=== PATIENT | female | born 1975 | race Asian ===

== ENCOUNTER 2018-11-11 22:34 | Emergency (ER) | payer OTHER, SELFPAY ==
[2018-11-11 22:43] VITALS: BP 148/93; PULSE 87; RESP 18; TEMP 36.4; O2SAT 100; BMI 22.3
--- NOTE | 2018-11-11 22:55 | PC.NURSE ---
Pt states stung by a bee on bottom of left 4th toe at 1500, she did not see bee sting her [place]. Took 25mg benadryl at 1500 and another at 2200. Pt also took 600mg ibuprofen at 2000. Pt is camping at [facility].
--- NOTE | 2018-11-11 23:25 | ED.LOWEXIN ---
HPI - Extremity Injury (Lower) General Chief Complaint: Extremity Injury, Lower Stated Complaint: LEFT FOOT BEE STING ON TOE PAIN Time Seen by Provider: 11/11/18 23:05 Source: patient Mode of arrival: ambulatory Limitations: no limitations History of Present Illness HPI Narrative: The patient stepped on a bee while walking barefoot and a local beats several hours prior to arrival. She has developed pain and swelling in the plantar left foot. She is taking analgesics, she has applied ice packs to foot. When up and walking pain and swelling in the left foot increased. She has no airway tightness or dyspnea. She has no rash or erythema distal from the injury area. She has no history of bee sting allergies. Her significant other elevated area, he is uncertain but may have pulled a stinger from the site. Related Data Allergies Allergy/AdvReac Type Severity Reaction Status Date / Time Iodinated Contrast- Oral and Allergy Verified 11/11/18 22:43 IV Dye Review of Systems Constitutional Denies body ache(s) and Denies weakness ENT Comments: No airway tightness Cardiovascular Denies rapid heart rate, Denies leg edema, Denies lightheadedness and Denies dyspnea Respiratory Denies dyspnea Musculoskeletal Reports as per HPI Integumentary/Breasts Comments: Erythema swelling limited to the left foot at the sting site. Neurologic Denies weakness [facility] Medical History (Updated 11/12/18 @ 01:55 by Dakota Johnson MD) No significant past medical history (Acute) Surgical History (Updated 11/12/18 @ 01:55 by Dakota Johnson MD) No pertinent past surgical history (Acute) Social History Smoking Status: Never smoker Social History Smoking Status: Never smoker Exam Initial Vital Signs Initial Vital Signs: Vital Signs Temperature 97.6 F 11/11/18 22:43 Pulse Rate 87 11/11/18 22:43 Respiratory Rate 18 11/11/18 22:43 Blood Pressure 148/93 H 11/11/18 22:43 Pulse Oximetry 100 11/11/18 22:43 Const General: cooperative, healthy appearing, well developed and well groomed [facility] Head: normocephalic and atraumatic Resp Auscultation: clear to auscultation bilaterally Skin Other: Focal erythema on the plantar left foot in an area between the 1st and 2nd MTP areas. No stingers present. Erythema and warmth of a 2.5 cm area is noted. there are no red streaks from the site. Extrem Other: Normal left foot capillary refill. Course Course Narrative: The patient has been taking ibuprofen and applying ice packs. There is no evidence of bee sting allergy. Patient was reassured that symptoms resolve despite her current level of discomfort. Vital Signs - 8 hr 11/11/18 22:43 Temperature 97.6 F Pulse Rate 87 Respiratory Rate 18 Blood Pressure 148/93 H Pulse Oximetry 100 Discharge Plan Departure Patient Disposition: Home Clinical Impression: Bee sting Qualifiers: Encounter type: initial encounter Injury intent: accidental or unintentional Qualified Code(s): T63.441A - Toxic effect of venom of bees, accidental (unintentional), initial encounter Discharge Date/Time: 11/11/18 23:30 Interventions: ED Discharge Assessment Last Done: 11/11/18 23:30 Instructions: How to Care for an Insect Bite or Sting Activity Restrictions/Additional Instructions: Ibuprofen 600 mg every 6 hours as needed for pain. Apply compresses to the sting site frequently for the next day or 2. Expect the majority of pain or swelling to resolvere within 48 hours. Return the ER as needed will
== END 2018-11-11 23:30 | disposition home or self-care (01) ==
PROVIDERS: Emergency Provider Emergency Medicine
DX: T63.441A Toxic effect of venom of bees, accidental (unintentional), initial encounter (principal)
CPT/HCPCS: 99282